=== PATIENT | male | born 1960 | race African-American/Black ===

== ENCOUNTER 2019-05-11 09:53 | Emergency (ER) | payer SELFPAY ==
[~2019-05-11] VITALS: Ht 177.8 cm; Wt 82.0 kg
[2019-05-11 10:58] VITALS: BP 149/98
[2019-05-11] MEDS ORDERED: IBUPROFEN 600MG TABLET PO ONE (11:30)
== END 2019-05-11 13:35 | disposition home or self-care (01) ==
LOC: ER 09:53
DX: M79.671 Pain in right foot (principal); M79.89 Other specified soft tissue disorders; I10 Essential (primary) hypertension
CPT/HCPCS: 73630; 93970; 99284